=== PATIENT | male | born 1940 | race Caucasian/White ===

== ENCOUNTER → 2018-02-15 | Day surgery (SDC) | payer MEDICARE ==
[~2018-02-15] VITALS: Ht 182.9 cm; Wt 107.9 kg
[~2018-02-15] MED LIST: ACETAMINOPHEN 1000 MG/100 ML 100 ML IV ONE; ACETAMINOPHEN/HYDROcodone 325 MG/5 MG TAB PO PRN; ASPI-516 CHEW; ASPI81 PO; BUPIVACAINE/EPINEPHRINE 0.25% 50 ML VIAL ONE; CHLORHEXIDINE GLUCONATE 2 % 1 PACK (2 CLOTHS) TOPICAL PRN; DEXAMETHASONE SOD PHOS 4 MG/ML VIAL IV ONE; DO NOT ADM ANY ANTICOAGULANT DRUGS PRN; FLEC1TAB PO; GLUC500C56 PO; GLUC500T4 PO; INSULIN HUMAN REGULAR 1,000 UNITS/10 ML VIAL SQ PRN; LACTATED RINGER'S 1000 ML IV PRN; LACTCAP8 PO; LEVA500T33 PO; LIDOCAINE HCL 1% PF 5 ML SYRINGE OTHER ONE; METOPROLOL TARTRATE 25 MG TAB PO PRN; METR-1 PO; MULT1TAB46; MUPIROCIN 2% OINT 22 GM TUBE ONE; OMEGCAP PO; ONDANSETRON HCL 4 MG/2 ML VIAL IV ONE; POVIDONE IODINE 5% (ANTISEPSIS KIT) 4 APPLICATIONS EACH NARE PRN; PROPOFOL 200 MG/20 ML AMP IV ONE; SODIUM CHLORID 0.9% 500 ML IV PRN; TAB-TAB PO; ceFAZolin 2 GM/DEX PREMIX 50 ML IV SCH; ceFAZolin 2 GM/NS PREMIX 100 ML IV SCH; ePHEDrine/NS 25 MG/5 ML SYRINGE IV ONE
[2018-02-15 13:44] VITALS: BP 122/66; PULSE 67; RESP 18; TEMP 97.7; O2SAT 97
--- NOTE | 2018-02-15 19:47 | EKG ---
Date Performed: 02/15/2018 Time Performed: 11:02:08 PTAGE: 77 years EKG: Sinus rhythm WITH Bigeminal premature ventricular contractions When compared to previous tracing, premature atria l contractions Are new. ABNORMAL ECG PREVIOUS TRACING : 06/26/2009 09.28 DOCTOR: Devon Garcia Interpretating Date/Time 02/15/2018 19:46:08
--- NOTE | 2018-02-16 17:19 | PD.OP ---
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 Operation and Findings: 77-year-old male who presented to clinic with a biopsy-proven left dorsal hand squamous cell carcinoma. Risks benefits alternative treatments were discussed. All questions answered and the patient expressed understanding. Patient elected to assume the risks of wide local excision of the above lesion. Informed consent obtained. Surgical site was marked in the preoperative holding bay. The patient was given antibiotics on-call to the operating room. The patient was taken to the operating room and all pressure points were padded. A surgical timeout was performed. After the smooth induction of general anesthesia, the lesion was outlined with 6 mm margins. The surgical site was instilled with quarter percent Marcaine with epinephrine. The surgical site was prepped and draped in the usual sterile fashion. The lesion was excised along the markings, marked with suture for orientation, and sent for frozen and permanent pathology. Frozen section showed negative margins. Hemostasis was ensured with bipolar cautery. The wound was left open pending permanent pathology. The wound was cleaned and dressed with mupirocin ointment Xeroform gauze dry gauze fluffs soft roll and an Jose wrap. All needle sponge and spent counts were correct 2. The patient was awoken from anesthesia and arrived stable and doing well the PACU. Richard Kwan MD Feb 16, 2018 17:19
== END | disposition home or self-care (01) ==
LOC: HSDC 10:37
PROVIDERS: ATTEND Student in an Organized Health Care Education/Training Program
DX: C44.629 Squamous cell carcinoma of skin of left upper limb, including shoulder (principal); R94.31 Abnormal electrocardiogram [ECG] [EKG]
CPT/HCPCS: 00400; 11626; 88305; 88331; 93005; J0131; J0690; J1100; J2405; J3010; J7120